=== PATIENT | female | born 1985 ===

== ENCOUNTER 2018-10-10 19:53 | Emergency (ER) | payer BC, MEDICAID ==
--- NOTE | 2018-10-10 20:44 | ED PDOC ---
HPI: Chest Pain Time Seen by Provider: 10/10/18 20:12 Chief Complaint (Nursing): Chest Pain Chief Complaint (Provider): chest pain History Per: Patient History/Exam Limitations: no limitations Onset/Duration Of Symptoms: Days (2) Current Symptoms Are (Timing): Still Present Quality: "Pain" Exacerbating Factors: Deep Breathing Additional Complaint(s): 33 y/o female presents for evaluation of left-sided chest pain x 2 days. Patient states pain worse with deep breaths. Patient reports for the last 2 months she has intermittent shortness of breath. Denies fever, headache, dizziness, nausea/vomiting, palpitations, leg pain/swelling, recent travel, OCP use. 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, unknown if related Past Medical History Reviewed: Historical Data, Nursing Documentation, Vital Signs Vital Signs: Last Vital Signs Temp 98.3 F 10/10/18 20:01 Pulse 73 10/10/18 20:01 Resp 18 10/10/18 20:01 BP 110/68 10/10/18 20:01 Pulse Ox 99 10/10/18 20:01 - Medical History PMH: No Chronic Diseases Denies: Chronic Kidney Disease - Surgical History Surgical History: Cholecystectomy - Family History Family History: States: No Known Family Hx - Home Medications Home Medications: Ambulatory Orders Medication Instructions Recorded No Known Home Med 11/14/15 - Allergies Allergies/Adverse Reactions: Allergies Allergy/AdvReac Type Severity Reaction Status Date / Time No Known Allergies Allergy Verified 11/13/15 20:53 Review of Systems ROS Statement: Except As Marked, All Systems Reviewed And Found Negative Cardiovascular: Positive for: Chest Pain Respiratory: Positive for: Shortness of Breath Physical Exam - Reviewed Nursing Documentation Reviewed: Yes Vital Signs Reviewed: Yes - Physical Exam Appears: Positive for: Well, Non-toxic, No Acute Distress Head Exam: Positive for: ATRAUMATIC, NORMAL INSPECTION, NORMOCEPHALIC Skin: Positive for: Normal Color Eye Exam: Positive for: Normal appearance ENT: Positive for: Normal ENT Inspection Cardiovascular/Chest: Positive for: Regular Rate, Rhythm. Negative for: Chest Non Tender (tender to palpate left anterior chest wall) Respiratory: Positive for: Normal Breath Sounds Gastrointestinal/Abdominal: Positive for: Normal Exam Extremity: Positive for: Normal ROM Neurological/Psych: Positive for: Awake, Alert, Oriented (x3) - Laboratory Results Result Diagrams: 10/10/18 21:04 10/10/18 21:04 - ECG ECG: Positive for: Viewed By Me (reviewed by ED attending) ECG Rhythm: Positive for: Sinus Rhythm O2 Sat by Pulse Oximetry: 99 - Radiology X-Ray: Viewed By Me X-Ray Interpretation: No Acute Disease - Progress ED Course And Treament: -cbc -cmp -troponin -cxr -ekg -toradol On re-eval, patient sleeping; upon awakening states she is feeling better Patient educated on findings, discharged with instructions to follow up with PMD within 2-3 days Advised NSAIDs PRN pain Return precautions given Disposition - Clinical Impression Clinical Impression: Atypical chest pain - Patient ED Disposition Is Patient to be Admitted: No Counseled Patient/Family Regarding: Studies Performed, Diagnosis, Need For Followup - Disposition Disposition: Routine/Home Disposition Time: 23:14 Condition: IMPROVED Instructions: Chest Pain Forms: [facility] (Chinese)
[2018-10-10 21:43] LABS: BASO % 0.4 % (0.0-2.0); EOS # 0.1 K/uL (0.0-0.7); EOS % 2.9 % (0.0-4.0); HEMOGLOBIN 12.5 g/dL (12.0-16.0); LYMPH # 1.3 K/uL (1.0-4.3); LYMPH % 28.4 % (20.0-40.0); MEAN CELL VOLUME 87.9 fl (81.0-99.0); MEAN CORPUSCULAR HEMOGLOBIN 29.2 pg (27.0-31.0); MEAN CORPUSCULAR HGB CONC 33.2 g/dL (33.0-37.0); MEAN PLATELET VOLUME 8.3 fl (7.2-11.7); MONO # 0.7 K/uL (0.0-0.8); MONO % 16.1 % (0.0-10.0); NEUT # 2.4 K/uL (1.8-7.0); NEUT % 52.2 % (50.0-75.0); NRBC % 0.1 % (0.0-0.0); RBC 4.29 Mil/uL (3.80-5.20); RED CELL DISTRIBUTION WIDTH 12.7 % (11.5-14.5); WHITE BLOOD COUNT 4.5 K/uL (4.8-10.8)
[2018-10-10 22:07] LABS: ALB/GLOB RATIO 1.2 (1.0-2.1); ALBUMIN 3.9 g/dL (3.5-5.0); ALT/SGPT 29 U/L (9-52); AST/SGOT 25 U/L (14-36); BLOOD UREA NITROGEN 16 mg/dl (7-17); CALCIUM 8.9 mg/dL (8.4-10.2); GFR NON-AFRICAN AMERICAN > 60
[2018-10-10 23:46] VITALS: BP 98/56; PULSE 74; RESP 16; TEMP 98.6; O2SAT 97
--- NOTE | 2018-10-11 10:50 | RAD ---
Date of service: 10/10/2018 HISTORY: Chest pain COMPARISON: No prior. TECHNIQUE: Chest PA and lateral FINDINGS: LINES AND TUBES: None. LUNG AND PLEURA: The lungs are well inflated and clear. No pleural effusion or pneumothorax. HEART AND MEDIASTINUM: The heart is not enlarged. No aortic atherosclerotic calcifications present. The hilar and mediastinal contours are within normal limits. SKELETAL STRUCTURES: The bony structures are within normal limits for the patient's age. VISUALIZED UPPER ABDOMEN: Normal. OTHER FINDINGS: None. IMPRESSION: No active pulmonary disease.
--- NOTE | 2018-10-11 11:16 | CARD ---
APPROVED REPORT Date of service: 10/10/2018 EKG Measurement Heart [id number] <Conclusion> Normal sinus rhythm with sinus arrhythmia Normal Electrocardiogram
== END 2018-10-10 23:40 | disposition home or self-care (01) ==
LOC: H.ER 19:53
DX: R07.89 Other chest pain (principal)
CPT/HCPCS: 71046; 80053; 81025; 84484; 85025; 85378; 93005; 96374; 99285; J1885